=== PATIENT | female | born 1935 | race Caucasian/White ===

== ENCOUNTER 2018-04-02 13:07 | Emergency (ER) | payer MEDICARE, OTHER ==
--- NOTE | 2018-04-02 13:12 | ED Physician Documentation ---
Female Urogenital Problems - HISTORIAN Historian: patient (HTN, DM and hypothyroidism ) - HPI Stated Complaint: blood in urine starting yesterday history of UTI's Chief Complaint: Female Urogenital Problems Onset: days ago (2) Severity: mild Location of Pain: other (hematuria ) Further Comments: yes (She has a history of UTI's - she reports that she had blood in her urine two days ago. denies any fever or n/v. She has no lower back pain. Mild increase in urgency. She did try an OTC meds for burning. She has no burning now.) - Associated Symptoms Urinary Symptoms: blood in urine, frequent urination, discomfort w/ urination Discharge: denies: vaginal discharge - ROS CONST: none GI/: denies: nausea, vomiting, decreased appetite, diarrhea EYES/ENT: none NEURO/PSYCH: none MS/SKIN/LYMPH: none - PAST HX Past History: none Other History: other Surgeries/Procedures: other ("colon" ) Immunizations: UTD Allergies/Adverse Reactions: Allergies Allergy/AdvReac Type Severity Reaction Status Date / Time acetaminophen [From [place]] Allergy Intermediate Hives Verified 04/02/18 13:49 alendronate sodium Allergy Intermediate Hives Verified 04/02/18 13:48 [From Fosamax] hydrocodone [From [place]] Allergy Intermediate Hives Verified 04/02/18 13:49 captopril [From [place]en] AdvReac Intermediate Hives Verified 04/02/18 13:51 lisinopril AdvReac Intermediate Cough Verified 04/02/18 13:51 Home Medications: Ambulatory Orders Medication Instructions Recorded Indapamide 2.5 mg PO DAILY 04/02/18 - SOCIAL HX Smoking History: non-smoker Alcohol Use: none Drug Use: none - FAMILY HX Family History: none - REVIEWED ASSESSMENTS Nursing Assessment Reviewed: Yes Vitals Reviewed: Yes Progress - Progress Progress: 1330: discussed results - she does not want to stay for IV fluids- she feels she can drink plenty at home and take her meds. DG Female Urogenital Problems - EXAM General Appearance: no acute distress, alert EENT: eye inspection normal Respiratory: no resp. distress, breath sounds nml CVS: reg rate & rhythm, heart sounds normal Abdomen: soft, non-tender, no organomegaly, no distention, nml bowel sounds Back: non-tender Skin: color nml, no rash, warm,dry Extremities: non-tender Neuro: oriented X3, CN's nml as tested, motor nml, sensation nml, mood/affect nml, cognition normal Discharge Clincal Impression: UTI (urinary tract infection) Qualifiers: Urinary tract infection type: site unspecified Hematuria presence: with hematuria Qualified Code(s): N39.0 - Urinary tract infection, site not specified Referrals: Primary Doctor,No [Primary Care Provider] - 2 Days Comments: 1. Macrobid 100 mg take 1 by mouth BID X 10 days 2. Increase fluids 3. NO caffeine 4. Follow up with PCP in 2-4 days for urine re check 5. Return to ER for any change or increase of symptoms Condition: Stable Disposition: 01 HOME, SELF-CARE Decision to Admit: NO Date of Decison to Admit: 04/02/18 Decision Time: 13:35
[2018-04-02 15:52] VITALS: BP 167/94
[2018-04-02 16:01] LABS: APPEARANCE,URINE CLOUDY (CLEAR); COLOR,URINE ORANGE (YELLOW); OCCULT BLOOD,URINE 3+ (NEGATIVE)
== END 2018-04-02 13:50 | disposition home or self-care (01) ==
LOC: ED 13:07
DX: N39.0 Urinary tract infection, site not specified (principal)
CPT/HCPCS: 81002; 87086; 99283